=== PATIENT | female | born 1965 | race Caucasian/White ===

== ENCOUNTER 2020-02-03 17:17 | Emergency (ER) | payer OTHER ==
--- NOTE | 2020-02-03 17:20 | ERPHSYRPT ---
- History of Present Illness Time Seen by Provider: 02/03/20 17:20 Source: patient, family Exam Limitations: no limitations Physician History: This is a 54-year-old morbidly obese white female who is diabetic and has hypertension and lost her balance and fell congregation prior to arrival. She complains of thoracic level back pain as well as left side posterior lateral rib pain. She did not hit her head. She has no complaints of any neck pain. She has no abdominal pain. She is not short of breath. Occurred: just prior to arrival Reason for Fall: lost balance Injuries/Pain Location: chest (Posterior lateral ribs), back, middle Loss of Consciousness: no loss of consciousness Quality: sharpness Severity of Pain-Max: moderate Severity of Pain-Current: moderate Modifying Factors: Improves With: movement Associated Symptoms (Fall): back pain, other (Left posterior lateral ribs) Allergies/Adverse Reactions: azithromycin [From Zithromax Z-Dillon] Allergy (Intermediate, Verified 02/03/20 17:32) Hives acetaminophen [From Vicodin] Adverse Reaction (Mild, Verified 02/03/20 17:32) N/V/D hydrocodone bitartrate [From Vicodin] Adverse Reaction (Mild, Verified 02/03/20 17:32) N/V/D metformin Adverse Reaction (Mild, Verified 02/03/20 17:32) N/V/D Home Medications: Metoprolol Succinate 100 mg [Toprol Xl 100 MG] 100 mg PO BID 09/18/13 [History] PANTOPRAZOLE 40 mg Tablet [Protonix 40MG Tablet] 40 mg PO DAILY 09/18/13 [History] Amlodipine Besylate 10 mg [Norvasc 10 MG] 10 mg PO BID 12/08/14 [History] Valsartan [Diovan] 80 mg PO BID 12/08/14 [History] Empagliflozin [Jardiance] 25 mg PO DAILY 02/03/20 [History] Hx Tetanus, Diphtheria Vaccination/Date Given: No Hx Influenza Vaccination/Date Given: No Hx Pneumococcal Vaccination/Date Given: No Travel Risk - International Travel Have you traveled outside of the country in past 3 weeks: No - Coronavirus Screening Are you exhibiting any of the following symptoms?: No Close contact with a COVID-19 positive Pt in past 14-21 Days: No - Review of Systems Constitutional: No Symptoms Eyes: No Symptoms Ears, Nose, & Throat: No Symptoms Respiratory: No Symptoms Cardiac: No Symptoms Abdominal/Gastrointestinal: No Symptoms Genitourinary Symptoms: No Symptoms Musculoskeletal: Back Pain, Fall, Other (Left posterior lateral ribs) Skin: No Symptoms Neurological: No Symptoms Psychological: No Symptoms Endocrine: No Symptoms Hematologic/Lymphatic: No Symptoms Immunological/Allergic: No Symptoms All Other Systems: Reviewed and Negative - Past Medical History Pertinent Past Medical History: Yes Neurological History: No Pertinent History ENT History: No Pertinent History Cardiac History: Angina, Congestive Heart Failure, Coronary Artery Disease, High Cholesterol, Hypertension, Myocardial Infarction ([place]) Respiratory History: Sleep Apnea Endocrine Medical History: Diabetes Type II Musculoskeletal History: Arthritis GI Medical History: GERD History: No Pertinent History Psycho-Social History: No Pertinent History Female Reproductive Disorders: No Pertinent History - Past Surgical History Past Surgical History: Yes Neuro Surgical History: No Pertinent History Cardiac: Cardiac Catheterization, Cardiac Stent Respiratory: No Pertinent History Gastrointestinal: Cholecystectomy Genitourinary: No Pertinent History Musculoskeletal: No Pertinent History Female Surgical History: Section Other Surgical History: 2 HEART STENTS. TUMOR REMOVED OFF OF BACK OF NECK NOVEMBER 2012 - Social History Smoking Status: Former smoker How long have you smoked: 7 YEARS Exposure to second hand smoke: No Drug Use: none Patient Lives Alone: No - Nursing Vital Signs Nursing Vital Signs: Initial Vital Signs Temperature 97.9 F 02/03/20 17:20 Pulse Rate 71 02/03/20 17:20 Respiratory Rate 17 02/03/20 17:20 Blood Pressure 157/87 02/03/20 17:20 O2 Sat by Pulse Oximetry 97 02/03/20 17:20 Pain Scale Pain Intensity [Left Posterior 10 Lateral Back] Pain Intensity 10 - [place] Coma Score Best Eye Response ([place]): (4) open spontaneously Best Verbal Response ([place]): (5) oriented Best Motor Response ([place]): (6) obeys commands [place] Total: 15 - Physical Exam General Appearance: moderate distress, alert, anxiety, obese Head Injury: no evidence of injury Eye Exam: PERRL/EOMI, eyes nml inspection ENT Exam: airway nml, nml ext.inspection Neck Exam: supple, trachea midline, full range of motion, normal alignment, normal inspection Respiratory/Chest Exam: normal breath sounds, rib tenderness (Left posterior lateral), No chest tenderness, No respiratory distress, No crepitus, No subcutaneous emphysema Cardiovascular Exam: normal heart sounds, regular rate/rhythm, normal peripheral pulses Gastrointestinal Exam: soft, normal bowel sounds, No tenderness Rectal Exam: not done Back Exam: normal inspection, normal range of motion, muscle spasm, No CVA tenderness, No vertebral tenderness Extremity Exam: normal inspection, normal range of motion, capillary refill <3 sec, pelvis stable Neurologic Exam: alert, oriented x 3, cooperative, planning management it specialist II-XII nml as tested, normal mood/affect, nml cerebellar function, nml station & gait, sensation nml Skin Exam: normal color, warm, dry SpO2 Interpretation: normal O2 Delivery: Room Air - Course Nursing assessment & vital signs reviewed: Yes Ordered Tests: Active Orders 24 hr Category Date Time Status RIBS UNILATERAL Stat Exams 02/03/20 18:40 Taken THORACIC SPINE (AP,LAT,SWIMM) Stat Exams 02/03/20 17:28 Taken Medication Summary Discontinued Medications Generic Name Dose Route Start Last Admin Trade Name Freq PRN Reason Stop Dose Admin Hydromorphone HCl 0.5 mg 02/03/20 17:29 02/03/20 17:43 Hydromorphone 1 Mg/Ml Injection IM 02/03/20 17:30 0.5 mg STAT ONE Administration Hydromorphone HCl Confirm 02/03/20 17:32 Hydromorphone 1 Mg/Ml Injection Administered 02/03/20 17:33 Dose 1 mg .ROUTE .STK-MED ONE Ketorolac Tromethamine 60 mg 02/03/20 17:29 02/03/20 17:43 Toradol 30 Mg Injection IM 02/03/20 17:30 60 mg STAT ONE Administration Ketorolac Tromethamine Confirm 02/03/20 17:32 Toradol 30 Mg Injection Administered 02/03/20 17:33 Dose 60 mg .ROUTE .STK-MED ONE Ketorolac Tromethamine Confirm 02/03/20 17:39 Toradol 30 Mg Injection Administered 02/03/20 17:40 Dose 30 mg .ROUTE .STK-MED ONE Promethazine HCl 12.5 mg 02/03/20 17:29 02/03/20 17:43 Phenergan 25 Mg Inj IM 11/01/20 17:30 12.5 mg STAT ONE Administration Promethazine HCl Confirm 02/03/20 17:32 Phenergan 25 Mg Inj Administered 02/03/20 17:33 Dose 25 mg .ROUTE .STK-MED ONE - Progress Progress: improved, pain not gone completely, re-examined Progress Note: 02/03/20 18:52 Patient states that her pain is improved. Is not completely gone but significantly improved. Medical decision making: This patient will receive to take home Percocet pain medicine. She is also to add Aleve or ibuprofen to her pain regimen. The rib x-rays show no acute rib fractures. The thoracic spine x-ray shows no acute fracture or subluxation. We will send a prescription to pharmacy for Pilot and Flexeril. Counseled pt/family regarding: diagnosis, need for follow-up, rad results - Departure Departure Disposition: Home Clinical Impression: Fall with injury, Contusion Condition: Stable Critical Care Time: No Referrals: SUNITHA CEVALLOS [NON-STAFF PHY W/O PRIVILEGES] - Additional Instructions: Take ibuprofen or Aleve in addition to the medications that were provided to you tonight. Continue ibuprofen or Aleve to your pain regimen for the next few days. May use ice to the areas of tenderness 3 times a day for the next 48 hours. If your pain persists or worsens follow-up with your primary care for further management. Prescriptions: Hydrocodone/APAP 5/325 [Pilot 5/325 mg] 1 each PO Q8H PRN PRN #9 tablet MDD 3 PRN Reason: Pain Cyclobenzaprine HCl 10 mg [Cyclobenzaprine 10 MG] 10 mg PO TID #10 tablet
[2020-02-03] MEDS ORDERED: TORAdol 30 mg Injection ONE ×2 (17:32→17:39)
[2020-02-03] MEDS ORDERED: Hydromorphone 1 mg/ml Injection ONE (17:32)
[2020-02-03] MEDS ORDERED: Phenergan 25 MG INJ ONE (17:32)
[2020-02-03] MEDS: Phenergan 25 MG INJ IM ONE (17:43)
[2020-02-03] MEDS: TORAdol 30 mg Injection IM ONE (17:43)
[2020-02-03] MEDS: Hydromorphone 1 mg/ml Injection IM ONE (17:43)
[2020-02-03] MEDS ORDERED: PERCOCET TABLET 5/325MG PO STA (18:57)
[2020-02-03] MEDS ORDERED: PERCOCET TABLET 5/325MG ONE (19:02)
[2020-02-03 19:12] VITALS: BP 128/65; PULSE 78
[2020-02-03 19:25] VITALS: O2SAT 98
--- NOTE | 2020-02-04 08:48 | XRAY ---
Indication: Pain following fall. Comparison: None AP/lateral thoracic spine demonstrates 11 typical rib-bearing thoracic segments with hypoplastic T12 ribs in normal alignment with minimal/mild multilevel endplate spurring, mild aortic calcifications, and cholecystectomy clips. No other bony, articular, or soft tissue abnormalities.
--- NOTE | 2020-02-04 08:50 | XRAY ---
Indication: Pain following fall. Comparison: None 2 view left ribs demonstrates degenerative changes throughout the spine and left shoulder. No other bony, articular, or soft tissue abnormalities.
== END 2020-02-03 19:22 | disposition home or self-care (01) ==
LOC: ED 17:17
DX: T14.8XXA Other injury of unspecified body region, initial encounter (principal); E11.9 Type 2 diabetes mellitus without complications; I10 Essential (primary) hypertension; W18.30XA Fall on same level, unspecified, initial encounter; I25.10 Atherosclerotic heart disease of native coronary artery without angina pectoris; Y93.9 Activity, unspecified; Y92.22 Religious institution as the place of occurrence of the external cause; M54.6 Pain in thoracic spine; R07.81 Pleurodynia; Z79.899 Other long term (current) drug therapy; I50.9 Heart failure, unspecified; E78.00 Pure hypercholesterolemia, unspecified; I25.2 Old myocardial infarction; Z72.0 Tobacco use
CPT/HCPCS: 71100; 72072; 96372; 99284; J1170; J1885; J2550; A9270-GY

== ENCOUNTER 2020-09-30 23:02 | Emergency (ER) | payer OTHER ==
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
[2020-10-01 01:13] VITALS: BP 161/104; PULSE 79; O2SAT 100
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
== END 2020-10-01 01:10 | disposition home or self-care (01) ==
LOC: ED 23:02
DX: V53.5XXA Driver of pick-up truck or van injured in collision with car, pick-up truck or van in traffic accident, initial encounter (principal); Y93.9 Activity, unspecified; Y92.410 Unspecified street and highway as the place of occurrence of the external cause; Y99.8 Other external cause status; I50.9 Heart failure, unspecified; I25.10 Atherosclerotic heart disease of native coronary artery without angina pectoris; E11.9 Type 2 diabetes mellitus without complications; E78.00 Pure hypercholesterolemia, unspecified; Z79.899 Other long term (current) drug therapy
CPT/HCPCS: 71046; 73030; 73501; 99284

== ENCOUNTER 2022-06-25 22:51 | Emergency (ER) | payer BC ==
--- NOTE | 2022-06-25 22:59 | ERPHSYRPT ---
- History of Present Illness Time Seen by Provider: 06/25/22 22:59 Source: patient, family Exam Limitations: no limitations Physician History: This is a 57-year-old white female patient of Dr. Temple who states she has had intermittent dizziness in the last several days. She occasionally gets short of breath. She does have a history of cardiac stent placement x2 in the past. She has history of chronic angina. She felt lightheaded today at work. 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 However there is been no confirmation with either Holter monitor or twelve-lead EKG at this point. Patient did arrive to the emergency department with a systolic blood pressure of over 200. She does not have any significant chest pain at this time nor shortness of breath. She has no abdominal pain. She has had no nausea vomiting or diarrhea. Timing/Duration: today, worse Severity: mild Character of Deficits: none Deficits: no difficulties Baseline/Normal Cognition: alert oriented x 3 Current Cognition: alert oriented x 3 Associated Symptoms: No vision changes, No chest pain Allergies/Adverse Reactions: azithromycin [From Zithromax Z-Dillon] Allergy (Intermediate, Verified 06/25/22 23:11) Hives Iodine and Iodide Containing Produc Allergy (Intermediate, Verified 06/25/22 23:11) Swelling of Tongue and Lips acetaminophen [From Vicodin] Adverse Reaction (Mild, Verified 06/25/22 23:11) N/V/D hydrocodone bitartrate [From Vicodin] Adverse Reaction (Mild, Verified 06/25/22 23:11) N/V/D metformin Adverse Reaction (Mild, Verified 06/25/22 23:11) N/V/D shellfish derived Adverse Reaction (Verified 06/25/22 23:11) Home Medications: Metoprolol Succinate 100 mg [Toprol Xl 100 MG] 100 mg PO BID 09/18/13 [History] PANTOPRAZOLE 40 mg Tablet [Protonix 40MG Tablet] 40 mg PO DAILY 09/18/13 [History] Amlodipine Besylate 10 mg [Norvasc 10 MG] 10 mg PO BID 12/08/14 [History] Valsartan [Diovan] 160 mg PO BID 12/08/14 [History] Empagliflozin [Jardiance] 25 mg PO DAILY 02/03/20 [History] Insulin Detemir [Levemir] 30 unit SQ DAILY 09/30/20 [History] Atorvastatin Calcium 40 mg PO DAILY 06/25/22 [History] Ezetimibe 10 mg PO DAILY 06/25/22 [History] Insulin Lispro [Humalog] See Rx Instructions .ROUTE .COMPLEX 06/25/22 [History] Isosorbide Mononitrate [Isosorbide Mononitrate ER] 30 mg PO DAILY 06/25/22 [History] Semaglutide [Rybelsus] 1 tab PO DAILY 06/25/22 [History] Hx Tetanus, Diphtheria Vaccination/Date Given: No Hx Influenza Vaccination/Date Given: No Hx Pneumococcal Vaccination/Date Given: No Travel Risk - International Travel Have you traveled outside of the country in past 3 weeks: No - Coronavirus Screening Are you exhibiting any of the following symptoms?: No Close contact with a COVID-19 positive Pt in past 14-21 Days: Yes - Vaccine Status Have you recieved a Covid-19 vaccination: Yes 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[employer] - Vaccination Dates Date of 2cond Vaccination (if applicable): 07/13/20 - Review of Systems Constitutional: No Symptoms Eyes: No Symptoms Ears, Nose, & Throat: No Symptoms Respiratory: No Symptoms Cardiac: No Symptoms Abdominal/Gastrointestinal: No Symptoms Genitourinary Symptoms: No Symptoms Musculoskeletal: No Symptoms Skin: No Symptoms Neurological: Dizziness Psychological: Anxiety Endocrine: No Symptoms Hematologic/Lymphatic: No Symptoms Immunological/Allergic: No Symptoms All Other Systems: Reviewed and Negative - Past Medical History Pertinent Past Medical History: Yes Neurological History: No Pertinent History ENT History: No Pertinent History Cardiac History: Angina, Congestive Heart Failure, Coronary Artery Disease, High Cholesterol, Hypertension, Myocardial Infarction ([place]) Respiratory History: Sleep Apnea Endocrine Medical History: Diabetes Type II Musculoskeletal History: Arthritis GI Medical History: GERD History: No Pertinent History Psycho-Social History: No Pertinent History Female Reproductive Disorders: No Pertinent History Other Medical History: plantar faciatis - Past Surgical History Past Surgical History: Yes Neuro Surgical History: No Pertinent History Cardiac: Cardiac Catheterization, Cardiac Stent Respiratory: No Pertinent History Gastrointestinal: Cholecystectomy Genitourinary: No Pertinent History Musculoskeletal: No Pertinent History Female Surgical History: Section Other Surgical History: 2 HEART STENTS. TUMOR REMOVED OFF OF BACK OF NECK NOVEMBER 2012 - Social History Smoking Status: Former smoker How long have you smoked: 7 YEARS Exposure to second hand smoke: Yes Drug Use: none Patient Lives Alone: No - Nursing Vital Signs Nursing Vital Signs: Initial Vital Signs Temperature 97.8 F 06/25/22 23:03 Pulse Rate 74 06/25/22 23:03 Respiratory Rate 22 06/25/22 23:03 Blood Pressure 218/92 06/25/22 23:03 O2 Sat by Pulse Oximetry 100 06/25/22 23:03 Pain Scale Pain Intensity 0 - [place] Coma Scale Best Eye Response ([place]): (4) open spontaneously Best Verbal Response ([place]): (5) oriented Best Motor Response ([place]): (6) obeys commands [place] Total: 15 - Physical Exam General Appearance: no apparent distress, alert, anxiety Eye Exam: bilateral eye: normal inspection, PERRL, EOMI Ears, Nose, Throat Exam: normal ENT inspection, moist mucous membranes Neck Exam: normal inspection, non-tender, supple, full range of motion Respiratory: normal breath sounds, lungs clear, airway intact, No chest tenderness, No respiratory distress Cardiovascular: regular rate/rhythm, normal heart sounds, normal peripheral pulses Gastrointestinal: soft, normal bowel sounds, No tenderness Pelvic Exam: not done Rectal Exam: not done Back Exam: normal inspection, normal range of motion, No CVA tenderness, No vertebral tenderness Extremity Exam: normal inspection, normal range of motion, pelvis stable Mental Status: alert, oriented x 3, 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 Exam: normal hearing, normal speech, PERRL, tongue midline Coordination/Gait: normal finger to nose, normal gait, normal cerebellar function Motor/Sensory: no motor deficit, no sensory deficit, no pronator drift Skin Exam: normal color, warm, dry SpO2 Interpretation: normal O2 Delivery: Room Air - Course Nursing assessment & vital signs reviewed: Yes EKG Interpreted by Me: RATE (72), Sinus Rhythm, NORMAL AXIS, NORMAL INTERVALS, NORMAL QRS, NORMAL ST-T, Other (No acute ischemic changes on today's twelve-lead EKG) Ordered Tests: Active Orders 24 hr Category Date Time Status Inventory Control Assistant STAT Care 06/25/22 23:06 Active EKG-ER Only STAT Care 06/25/22 23:05 Active IV Insertion STAT Care 06/25/22 23:05 Active Pulse Oximetry (ED) STAT Care 06/25/22 23:05 Active HEAD WITHOUT CONTRAST [CT] Stat Exams 06/25/22 23:13 Taken CBC W DIFF Stat Lab 06/25/22 23:15 Completed CMP Stat Lab 06/25/22 23:15 Completed MAGNESIUM Stat Lab 06/25/22 23:15 Completed NT PRO BNPII Stat Lab 06/25/22 23:15 Completed TROPONIN Q4H Lab 06/26/22 00:01 Completed TROPONIN Q4H Lab 06/26/22 04:15 Ordered TROPONIN Q4H Lab 06/26/22 08:15 Ordered UA W/RFX UR CULTURE Stat Lab 06/26/22 00:31 Completed Medication Summary Discontinued Medications Generic Name Dose Route Start Last Admin Trade Name Freq PRN Reason Stop Dose Admin Enalaprilat 0.625 mg 06/25/22 23:33 06/25/22 23:47 Enalaprilat 2.5 Mg Injection IV 06/25/22 23:34 0.625 mg STAT ONE Administration Enalaprilat Confirm 06/25/22 23:45 Enalaprilat 2.5 Mg Injection Administered 06/25/22 23:46 Dose 2.5 mg IV .STK-MED ONE Ondansetron HCl 4 mg 06/26/22 00:53 Ondansetron Hcl 4 Mg/2 Ml Vial IV 06/26/22 00:54 STAT ONE Lab/Rad Data: Laboratory Result Diagrams 06/25/22 23:15 06/25/22 23:15 Laboratory Results 06/26/22 06/26/22 06/25/22 Range/Units 00:31 00:01 23:20 WBC (4.0-10.5) x10^3/uL RBC (4.1-5.4) x10^6/uL Hgb (12.0-16.0) g/dL Hct (35-47) % MCV (78-100) fL MCH (26-32) pg MCHC (32-36) g/dL RDW (11.5-14.0) % Plt Count (150-450) x10^3/uL MPV (7.5-11.0) fL Gran % (36.0-66.0) % Immature Gran % (Auto) (0.00-0.4) % Nucleat RBC Rel Count (0.00-0.1) % Eos # (Auto) (0-0.5) x10^3/uL Immature Gran # (Auto) (0.00-0.03) x10^3u/L Absolute Lymphs (auto) (1.0-4.6) x10^3/uL Absolute Monos (auto) (0.0-1.3) x10^3/uL Absolute Nucleated RBC (0.00-0.01) x10^3u/L Lymphocytes % (24.0-44.0) % Monocytes % (0.0-12.0) % Eosinophils % (0.00-5.0) % Basophils % (0.0-0.4) % Absolute Granulocytes (1.4-6.9) x10^3/uL Basophils # (0-0.4) x10^3/uL Sodium (137-145) mmol/L Potassium (3.5-5.1) mmol/L Chloride (98-107) mmol/L Carbon Dioxide (22-30) mmol/L Anion Gap (5-15) MEQ/L BUN (7-17) mg/dL Creatinine (0.52-1.04) mg/dL Estimated GFR ML/MIN Glucose (74-106) mg/dL Calcium (8.4-10.2) mg/dL Magnesium (1.6-2.3) mg/dL Total Bilirubin (0.2-1.3) mg/dL AST (14-36) U/L ALT (0-35) U/L Alkaline Phosphatase (38-126) U/L Troponin I < 0.012 (0.000-0.034) ng/mL NT-Pro-B Natriuret Pep (<300) pg/mL Serum Total Protein (6.3-8.2) g/dL Albumin (3.5-5.0) g/dL Urine Color Yellow (Yellow) Urine Appearance Clear (Clear) Urine pH 5.5 (4.6-8.0) Ur Specific [place] 1.025 (1.005-1.030) Urine Protein Negative (Negative) Urine Glucose (UA) >=1000 A (Negative) mg/dL Urine Ketones Trace A (Negative) Urine Blood Negative (Negative) Urine Nitrite Negative (Negative) Urine Bilirubin Negative (Negative) Urine Urobilinogen 0.2 (0.2) mg/dL Ur Leukocyte Esterase Negative (Negative) U Hyaline Cast (Auto) NONE SEEN (0-2) /LPF Urine Microscopic RBC 6-10 A (0-5) /HPF Urine Microscopic WBC 0-2 (0-5) /HPF Ur Epithelial Cells Rare (None Seen) /HPF Urine Bacteria None Seen (None Seen) /HPF Urine Culture Reflexed NO (NO) Influenza Type A Ag NEGATIVE (NEGATIVE) Influenza Type B Ag NEGATIVE (NEGATIVE) RSV (PCR) NEGATIVE (NEGATIVE) SARS-CoV-2 (PCR) NEGATIVE (NEGATIVE) 06/25/22 06/25/22 06/25/22 Range/Units 23:15 23:15 23:15 WBC 10.5 (4.0-10.5) x10^3/uL RBC 5.19 (4.1-5.4) x10^6/uL Hgb 15.4 (12.0-16.0) g/dL Hct 45.2 (35-47) % MCV 87.1 (78-100) fL MCH 29.7 (26-32) pg MCHC 34.1 (32-36) g/dL RDW 12.4 (11.5-14.0) % Plt Count 228 (150-450) x10^3/uL MPV 9.0 (7.5-11.0) fL Gran % 55.1 (36.0-66.0) % Immature Gran % (Auto) 0.6 H (0.00-0.4) % Nucleat RBC Rel Count 0.0 (0.00-0.1) % Eos # (Auto) 0.10 (0-0.5) x10^3/uL Immature Gran # (Auto) 0.06 H (0.00-0.03) x10^3u/L Absolute Lymphs (auto) 3.65 (1.0-4.6) x10^3/uL Absolute Monos (auto) 0.86 (0.0-1.3) x10^3/uL Absolute Nucleated RBC 0.00 (0.00-0.01) x10^3u/L Lymphocytes % 34.8 (24.0-44.0) % Monocytes % 8.2 (0.0-12.0) % Eosinophils % 1.0 (0.00-5.0) % Basophils % 0.3 (0.0-0.4) % Absolute Granulocytes 5.78 (1.4-6.9) x10^3/uL Basophils # 0.03 (0-0.4) x10^3/uL Sodium 139 (137-145) mmol/L Potassium 4.2 (3.5-5.1) mmol/L Chloride 104 (98-107) mmol/L Carbon Dioxide 21 L (22-30) mmol/L Anion Gap 18.5 H (5-15) MEQ/L BUN 14 (7-17) mg/dL Creatinine 0.59 (0.52-1.04) mg/dL Estimated GFR > 60.0 ML/MIN Glucose 160 H (74-106) mg/dL Calcium 9.3 (8.4-10.2) mg/dL Magnesium 2.1 (1.6-2.3) mg/dL Total Bilirubin 0.90 (0.2-1.3) mg/dL AST 32 (14-36) U/L ALT 28 (0-35) U/L Alkaline Phosphatase 52 (38-126) U/L Troponin I (0.000-0.034) ng/mL NT-Pro-B Natriuret Pep 104 (<300) pg/mL Serum Total Protein 7.9 (6.3-8.2) g/dL Albumin 4.7 (3.5-5.0) g/dL Urine Color (Yellow) Urine Appearance (Clear) Urine pH (4.6-8.0) Ur Specific [place] (1.005-1.030) Urine Protein (Negative) Urine Glucose (UA) (Negative) mg/dL Urine Ketones (Negative) Urine Blood (Negative) Urine Nitrite (Negative) Urine Bilirubin (Negative) Urine Urobilinogen (0.2) mg/dL Ur Leukocyte Esterase (Negative) U Hyaline Cast (Auto) (0-2) /LPF Urine Microscopic RBC (0-5) /HPF Urine Microscopic WBC (0-5) /HPF Ur Epithelial Cells (None Seen) /HPF Urine Bacteria (None Seen) /HPF Urine Culture Reflexed (NO) Influenza Type A Ag (NEGATIVE) Influenza Type B Ag (NEGATIVE) RSV (PCR) (NEGATIVE) SARS-CoV-2 (PCR) (NEGATIVE) - Progress Progress: improved Progress Note: 06/26/22 00:54 CT scan of head shows no acute intracranial abnormality. 06/26/22 00:56 This patient's medical issue is 1 of moderate complexity. The level of complexity and the work-up was based on the review of the patient's past medical history, medication list, drug allergy list, history of present illness and physical exam findings. The work-up included CT scan of the abdomen pelvis, placement of intravenous line, intravenous enalapril, intravenous Zofran, obtain a CBC, CMP, troponin, urine drug screen, urinalysis, flu swabs. I reviewed the results of the above studies. Patients symptoms are likely due to an elevated blood pressure which is now improved with single dose of 0.625 intravenous enalaprilat we are awaiting a urinalysis. If there is not an infection present, we will send the patient home with instructions to continue her medication as prescribed. We will provide her with a prescription for Zofran. Counseled pt/family regarding: lab results, diagnosis, need for follow-up, rad results Medical Desision Making - Independent Historian Additional History obtained from: Child - Discussion of managment Reviewed:: Test results, Need for additional workup Agreed on:: Treatment plan, need for follow-up - Diagnostic Testing Diagnostic test were ordered, analyzed, and reviewed by me: Yes Radiological Interpretation: Reviewed by me - Risk of complications The pt has a mod risk of morbidity or mortality based on: Need for prescription drug management - Departure Departure Disposition: Home Clinical Impression: Dizziness of unknown etiology, Hypertension Condition: Stable Critical Care Time: No Referrals: ABUNDIO TEMPLE MD [Primary Care Provider] - Follow up/PCP as directed Additional Instructions: Drink plenty of fluids. Take your medication as prescribed. Follow-up with your primary care physician for further evaluation management Prescriptions: Ondansetron ODT 4 MG [Zofran Odt 4 mg] 4 mg PO Q6H PRN PRN #10 tablet PRN Reason: Vomiting Meclizine HCl 25 mg [Antivert 25 mg] 25 mg PO Q8H PRN #10 tablet PRN Reason: Dizziness
[2022-06-25 23:29] LABS: Absolute Neutrophil Ct (ANC) 5.78 x10^3/uL (1.4-6.9); BASOPHIL % 0.3 % (0.0-0.4); Basophil (Absolute #) 0.03 x10^3/uL (0-0.4); Hematocrit 45.2 % (35-47); Hemoglobin 15.4 g/dL (12.0-16.0); IMMATURE GRAN # 0.06 x10^3u/L (0.00-0.03); IMMATURE GRAN % 0.6 % (0.00-0.4); Lymphocyte (Absolute #) 3.65 x10^3/uL (1.0-4.6); Lymphocytes % 34.8 % (24.0-44.0); Mean Cell Volume 87.1 fL (78-100); Mean Corpuscular Hemoglobin 29.7 pg (26-32); Mean Corpuscular Hgb Concent. 34.1 g/dL (32-36); Monocyte (Absolute #) 0.86 x10^3/uL (0.0-1.3); Monocytes % 8.2 % (0.0-12.0); Neutrophil % 55.1 % (36.0-66.0); Platelet Count 228 x10^3/uL (150-450); Red Blood Count 5.19 x10^6/uL (4.1-5.4); Red Cell Distribution Width 12.4 % (11.5-14.0); White Blood Count 10.5 x10^3/uL (4.0-10.5)
[2022-06-25] MEDS ORDERED: ENALAPRILAT 2.5 MG INJECTION IV ONE ×2 (23:33→23:45)
[2022-06-25 23:43] LABS: ALBUMIN 4.7 g/dL (3.5-5.0); ALKALINE PHOSPHATASE 52 U/L (38-126); ANION GAP 18.5 MEQ/L (5-15); BLOOD UREA NITROGEN 14 mg/dL (7-17); CHLORIDE 104 mmol/L (98-107); Calcium 9.3 mg/dL (8.4-10.2); Carbon Dioxide 21 mmol/L (22-30); Creatinine 1 0.59 mg/dL (0.52-1.04); EST GLOMERULAR FILTRATION RATE > 60.0 ML/MIN; Glucose 160 mg/dL (74-106); MAGNESIUM 2.1 mg/dL (1.6-2.3); Potassium 4.2 mmol/L (3.5-5.1); SGOT/AST 32 U/L (14-36); SGPT/ALT 28 U/L (0-35); SODIUM 139 mmol/L (137-145); Total Protein 7.9 g/dL (6.3-8.2)
[2022-06-26 00:06] LABS: INFLUENZA A NEGATIVE (NEGATIVE); INFLUENZA B NEGATIVE (NEGATIVE); RESPIRATORY SYNCTIAL VIRUS NEGATIVE (NEGATIVE); SARS-CoV-2 Xpert Express NEGATIVE (NEGATIVE)
[2022-06-26 00:53] LABS: Appearance Clear (Clear); Bacteria None Seen /HPF (None Seen); Bilirubin Negative (Negative); Blood Negative (Negative); Epithelial Cells Rare /HPF (None Seen); Glucose, Urine >=1000 mg/dL (Negative); Hyaline Casts NONE SEEN /LPF (0-2); Ketones Trace (Negative); Leukocyte Esterase Negative (Negative); Nitrite Negative (Negative); Ph 5.5 (4.6-8.0); Protein,Urine Dip Negative (Negative); Specific Gravity 1.025 (1.005-1.030); Urobilinogen 0.2 mg/dL (0.2); WBC 0-2 /HPF (0-5)
[2022-06-26] MEDS ORDERED: Zofran 4 MG/2 ML VIAL IV ONE (00:53)
[2022-06-26 00:54] LABS: ADD URINE CULTURE? NO (NO)
[2022-06-26] MEDS ORDERED: Zofran 4 MG/2 ML VIAL ONE (00:54)
[2022-06-26 02:23] VITALS: BP 149/87; PULSE 76; O2SAT 96
--- NOTE | 2022-06-26 08:01 | XRAY ---
Indication: Dizziness and lightheadedness. No known injury. Multiple contiguous axial images obtained through the head without contrast. Comparison: None Normal appearing brain parenchyma, ventricles, and bony calvarium for patient's age. Visualized paranasal sinuses and mastoid air cells are clear. Impression: Normal CT head without contrast exam. Comment: Preliminary interpretation made by [facility]. No critical discrepancy.
== END 2022-06-26 02:23 | disposition home or self-care (01) ==
LOC: ED 22:51
DX: R42 Dizziness and giddiness (principal); I11.0 Hypertensive heart disease with heart failure; I50.9 Heart failure, unspecified; E78.5 Hyperlipidemia, unspecified; E11.9 Type 2 diabetes mellitus without complications; Z79.4 Long term (current) use of insulin; Z79.85 Long-term (current) use of injectable non-insulin antidiabetic drugs; Z79.84 Long term (current) use of oral hypoglycemic drugs; Z79.899 Other long term (current) drug therapy; Z20.828 Contact with and (suspected) exposure to other viral communicable diseases
CPT/HCPCS: 0241U; 36000; 36415; 70450; 80053; 81001; 83735; 83880; 84484; 85025; 93005; 93041; 94760; 96374; 96375; 99284; J2405